=== PATIENT | female | born 1960 | race African-American/Black ===

== ENCOUNTER 2018-11-20 11:27 | Emergency (ER) | payer SELFPAY ==
[~2018-11-20] VITALS: Ht 165.1 cm; Wt 68.0 kg
[2018-11-20] MEDS ORDERED: UNOBMED (11:41)
[2018-11-20 12:22] LABS: APPEARANCE,URINE CLEAR; BILIRUBIN, URINE NEGATIVE (NEGATIVE); COLOR,URINE PALE YELLOW; GLUCOSE, URINE (UA) NEGATIVE (NEGATIVE); KETONES,URINE NEGATIVE (NEGATIVE); LEUKOCYTE ESTERASE ,URINE 3+ (NEGATIVE); NITRITE,URINE NEGATIVE (NEGATIVE); PH,URINE 6 (4.5-8.0); PROTEIN,URINE NEGATIVE (NEGATIVE); UROBILINOGEN,URINE NORMAL MG/DL (0.0-1.0)
[2018-11-20 12:26] LABS: BASOPHILS % (AUTO) 1.1 % (0.0-2.0); EOSINOPHILS % (AUTO) 2.9 % (0.0-3.0); HEMOGLOBIN 12.6 G/DL (12.0-16.0); LYMPHOCYTES % (AUTO) 28.2 % (20.0-45.0); MEAN CORPUSCULAR VOLUME 82 FL (80-99); MONOCYTES % (AUTO) 7.6 % (1.0-10.0); NEUTROPHILS % (AUTO) 60.2 % (45.0-75.0); PLATELET COUNT 298 K/UL (150-450); RED CELL DISTRIBUTION WIDTH 17.6 % (11.6-14.8); WHITE BLOOD COUNT 10.8 K/UL (4.8-10.8)
[2018-11-20 12:30] VITALS: BP 146/74
[2018-11-20 12:32] LABS: INR 0.9 (0.9-1.1)
[2018-11-20 12:47] LABS: ANION GAP 9 mmol/L (5-15); BLOOD UREA NITROGEN 14 mg/dL (7-18); CALCIUM 9.4 MG/DL (8.5-10.1); CARBON DIOXIDE 26 MMOL/L (21-32); CHLORIDE 106 MMOL/L (98-107); CREATININE 0.7 MG/DL (0.55-1.30); POTASSIUM 3.9 MMOL/L (3.5-5.1); SODIUM 141 MMOL/L (136-145)
[2018-11-20 12:51] LABS: ALANINE AMINOTRANSFERASE 35 U/L (12-78); ALBUMIN 3.8 G/DL (3.4-5.0); ALBUMIN/GLOBULIN RATIO 0.9 (1.0-2.7); ALKALINE PHOSPHATASE 87 U/L (46-116); ASPARTATE AMINO TRANSFERASE 17 U/L (15-37); BILIRUBIN,TOTAL 0.5 MG/DL (0.2-1.0)
--- NOTE | 2018-11-20 13:34 | Diagnostic Imaging Report ---
Indication: Abdominal pain Technique: One view of the chest Comparison: none Findings: Calcification in the left lower pelvis most likely represents a calcified fibroid. There are calcified gallstones in the right upper quadrant The bowel gas pattern is unremarkable. No masses. No evidence of organomegaly. Impression: No acute process Evidence of cholelithiasis
[2018-11-20] MEDS ORDERED: Isovue-300 100ml vial INJ PRN (13:45)
[2018-11-20 14:30] VITALS: BP 146/80
--- NOTE | 2018-11-20 14:36 | Emergency Room Report ---
History of Present Illness General Chief Complaint: Gastrointestinal Illness Source: Patient Present Illness HPI 58-year-old female presents ED for evaluation. Complaining of blood in her stool this morning. Noted bright red blood. Also noted some cramping abdominal pain. Left-sided, 5 out of 10, dull, nonradiating. Denies nausea or vomiting. Denies fevers or chills. Denies chest pain or shortness of breath. Does not take blood thinners. No other aggravating relieving factors. Denies any other associated symptoms Allergies: Coded Allergies: No Known Allergies (Unverified , 11/20/18) Patient History Past Medical History: HTN Past Surgical History: none Pertinent Family History: none Social History: Denies: smoking, alcohol use, drug use Last Menstrual Period: 7 yrs ago Now: No Immunizations: UTD Reviewed Nursing Documentation: PMH: Agreed; PSxH: Agreed Nursing Documentation-PMH Past Medical History: No History, Except For Hx Hypertension: Yes Review of Systems All Other Systems: negative except mentioned in HPI Physical Exam Vital Signs Date Time Temp Pulse Resp B/P (MAP) Pulse Ox O2 Delivery O2 Flow Rate FiO2 11/20/18 11:39 98.2 68 18 153/88 99 Room Air Sp02 EP Interpretation: reviewed, normal General Appearance: no apparent distress, alert, GCS 15, non-toxic Head: normocephalic, atraumatic Eyes: bilateral eye normal inspection, bilateral eye PERRL ENT: hearing grossly normal, normal pharynx, no angioedema, normal voice Neck: full range of motion, supple/symm/no masses Respiratory: chest non-tender, lungs clear, normal breath sounds, speaking full sentences Cardiovascular #1: regular rate, rhythm, no edema Cardiovascular #2: 2+ carotid (R), 2+ carotid (L), 2+ radial (R), 2+ radial (L) , 2+ dorsalis pedis (R), 2+ dorsalis pedis (L) Gastrointestinal: normal bowel sounds, soft, non-distended, no guarding, no rebound, tenderness Rectal: normal rectal tone, 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 - 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 Genitourinary: normal inspection, no CVA tenderness Musculoskeletal: back normal, gait/station normal, normal range of motion, non- tender Neurologic: alert, oriented x3, responsive, motor strength/tone normal, sensory intact, speech normal Psychiatric: judgement/insight normal, memory normal, mood/affect normal, no suicidal/homicidal ideation Reflexes: 3+ bicep (R), 3+ bicep (L), 3+ tricep (R), 3+ tricep (L), 3+ knee (R) , 3+ knee (L) Skin: normal color, no rash, warm/dry, well hydrated Lymphatic: no adenopathy Medical Decision Making Diagnostic Impression: Primary Impression: Diverticulitis ER Course Hospital Course 58-year-old F presents to ED with lower abdominal pain, blood in stool Differential diagnoses include: appendicitis, diverticulitis, SBO, gastroenteritis Clinical course Patient placed on stretcher. panel monitor. After initial history and physical I ordered labs, IV fluids, UA, pain medication and CT scan Labs - no leukocytosis, Hb/Hct stable. electrolytes ok. KUB - some fecal impaction noted CT abdomen and pelvis - diverticulosis, possible early diverticulitis Discussed findings with patient. Abdomen soft. No leukocytosis. No fever. Patient appears nontoxic, afebrile. Believe patient be safely discharged to home with antibiotics with close outpatient follow-up. Given Cipro and Flagyl here. Patient states she does not have a PMD. We'll provide referrals I feel this is a highly complex case requiring extensive working including EKG/ Rhythm strip, Xray/CT/US, Blood/urine lab work, repeat exams while in ED, and administration of strong opiates/narcotics for pain control, admission to hospital or close patient follow up. Diagnosis - divertculitis stable and discharged to home with prescription for Cipro and Flagyl, and tylenol #3. Followup with PMD. Return to ED if symptoms recur or worsen Labs Test 11/20/18 12:00 11/20/18 12:15 Urine Color Pale yellow Urine Appearance Clear Urine pH 6 (4.5-8.0) Urine Specific [place] 1.010 (1.005-1.035) Urine Protein Negative (NEGATIVE) Urine Glucose (UA) Negative (NEGATIVE) Urine Ketones Negative (NEGATIVE) Urine Blood 2+ (NEGATIVE) Urine Nitrite Negative (NEGATIVE) Urine Bilirubin Negative (NEGATIVE) Urine Urobilinogen Normal MG/DL (0.0-1.0) Urine Leukocyte Esterase 3+ (NEGATIVE) Urine RBC 2-4 /HPF (0 - 2) Urine WBC 5-10 /HPF (0 - 2) Urine Squamous Epithelial Cells Few /LPF (NONE/OCC) Urine Bacteria Few /HPF (NONE) White Blood Count 10.8 K/UL (4.8-10.8) Red Blood Count 4.90 M/UL (4.20-5.40) Hemoglobin 12.6 G/DL (12.0-16.0) Hematocrit 40.0 % (37.0-47.0) Mean Corpuscular Volume 82 FL (80-99) Mean Corpuscular Hemoglobin 25.8 PG (27.0-31.0) Mean Corpuscular Hemoglobin Concent 31.6 G/DL (32.0-36.0) Red Cell Distribution Width 17.6 % (11.6-14.8) Platelet Count 298 K/UL (150-450) Mean Platelet Volume 5.6 FL (6.5-10.1) Neutrophils (%) (Auto) 60.2 % (45.0-75.0) Lymphocytes (%) (Auto) 28.2 % (20.0-45.0) Monocytes (%) (Auto) 7.6 % (1.0-10.0) Eosinophils (%) (Auto) 2.9 % (0.0-3.0) Basophils (%) (Auto) 1.1 % (0.0-2.0) Prothrombin Time 10.0 SEC (9.30-11.50) Prothromb Time International Ratio 0.9 (0.9-1.1) Activated Partial Thromboplast Time 32 SEC (23-33) Sodium Level 141 MMOL/L (136-145) Potassium Level 3.9 MMOL/L (3.5-5.1) Chloride Level 106 MMOL/L (98-107) Carbon Dioxide Level 26 MMOL/L (21-32) Anion Gap 9 mmol/L (5-15) Blood Urea Nitrogen 14 mg/dL (7-18) Creatinine 0.7 MG/DL (0.55-1.30) Estimat Glomerular Filtration Rate > 60 mL/min (>60) Glucose Level 86 MG/DL (74-106) Calcium Level 9.4 MG/DL (8.5-10.1) Total Bilirubin 0.5 MG/DL (0.2-1.0) Aspartate Amino Transf (AST/SGOT) 17 U/L (15-37) Alanine Aminotransferase (ALT/SGPT) 35 U/L (12-78) Alkaline Phosphatase 87 U/L (46-116) Total Protein 8.1 G/DL (6.4-8.2) Albumin 3.8 G/DL (3.4-5.0) Globulin 4.3 g/dL Albumin/Globulin Ratio 0.9 (1.0-2.7) Lipase 176 U/L (73-393) Other X-Ray Diagnostic Results Other X-Ray Diagnostic Results : X-Ray ordered: KUB Indication: Pain EP Interpretation: Yes Interpretation: nonspecific bowel gas, no sbo, other - fecal impaction Impression: Other - constipation Electronically Signed by: Electronically signed by Daniel Davison MD CT/MRI/US Diagnostic Results CT/MRI/US Diagnostic Results : Imaging Test Ordered: CT A/P Impression Colonic diverticulosis. Very questionable infiltration of the fat anterior to the proximal sigmoid colon at the junction with the distal descending. Of doubtful significance but very early acute diverticulitis changes possible. Correlate with clinical findings Last Vital Signs Date Time Temp Pulse Resp B/P (MAP) Pulse Ox O2 Delivery O2 Flow Rate FiO2 11/20/18 11:46 68 18 Room Air 11/20/18 11:39 98.2 153/88 99 Status: improved Disposition: HOME, SELF-CARE Condition: Stable Scripts Acetaminophen With Codeine (T#3) (TYLENOL #3 TAB*) Y Tab 1 TAB ORAL Q8H PRN for For Pain, #12 TAB Prov: Daniel Davison MD 11/20/18 Metronidazole* (FLAGYL*) 500 Mg Tablet 500 MG ORAL THREE TIMES A DAY, #21 TAB Prov: Daniel Davison MD 11/20/18 Ciprofloxacin Hcl* (CIPROFLOXACIN HCL*) 500 Mg Tablet 500 MG ORAL Q12H, #14 TAB 0 Refills Prov: Daniel Davison MD 11/20/18 Referrals: NOT CHOSEN IPA/,REFERRING (PCP) Daniel Davison MD Nov 20, 2018 14:36
--- NOTE | 2018-11-20 14:55 | Diagnostic Imaging Report ---
Clinical Indication: Abdominal pain Technique: No oral contrast utilized, per emergency room physician request IV administration nonionic contrast. Venous phase spiral acquisition obtained through the abdomen and pelvis. Multiplanar reconstructions were generated. Total dose length product 608.29 mGycm. CTDIvol(s) 12.2 mGy. Dose reduction achieved using automated exposure control Comparison: none Findings: Lack of enteric contrast limits assessment of the GI tract. There is colonic diverticulosis. There is equivocal minimal infiltration of the fat anterior to the junction of the descending and proximal sigmoid colon. No fluid collection or extraluminal gas. Normal appendix. Normal caliber small bowel. No free or loculated intraperitoneal gas or fluid is evident. The distal esophagus, stomach, duodenum are unremarkable. The liver is diffusely hypoattenuating. It is normal in contour. However, prominent coronary veins are seen in the lesser sac. There are gallstones. The gallbladder is nondistended. No biliary ductal dilatation. The pancreas, spleen, adrenals, kidneys are unremarkable. There is a small fat-containing umbilical hernia. The uterus is enlarged, contains multiple exophytic fibroids as well as a calcified fibroid. No adnexal mass demonstrated. The bladder is unremarkable. The included lung bases are clear. The bones demonstrate mild degenerative spondylosis changes, are otherwise unremarkable. Impression: Limited assessment of the GI tract, due to lack of enteric contrast administration. Colonic diverticulosis. Very questionable infiltration of the fat anterior to the proximal sigmoid colon at the junction with the distal descending. Of doubtful significance but very early acute diverticulitis changes possible. Correlate with clinical findings Fatty liver Small coronary vein varices in the lesser sac, raises concern for portal hypertension. However, no hepatic contour abnormalities to suggest cirrhosis and no other stigmata of portal hypertension are demonstrated, so significance of this finding is uncertain. Cholelithiasis. Negative for dilated bile ducts Enlarged uterus with multiple fibroids, some calcified and therefore degenerated Incidental finding of mild degenerative spondylosis, small fat-containing abdominal hernia The CT scanner at [facility] is accredited by the [employer] and the scans are performed using protocols designed to limit radiation exposure to as low as reasonably achievable to attain images of sufficient resolution adequate for diagnostic evaluation.
[2018-11-20] MEDS ORDERED: Ciprofloxacin 500mg tab ORAL ONE (15:15)
[2018-11-20] MEDS ORDERED: metroNIDAZOLE 500mg tab ORAL ONE (15:15)
[2018-11-20] MEDS ORDERED: CIPROFLOXACIN500 M2 ORAL (15:23)
[2018-11-20] MEDS ORDERED: ACETAMINOPHEN-1 EAC1 ORAL (15:23)
[2018-11-20] MEDS ORDERED: METRONIDAZOLE500 MG ORAL (15:23)
[2018-11-20 15:40] VITALS: BP 133/76
== END 2018-11-20 15:40 | disposition home or self-care (01) ==
LOC: EMR 12:10
DX: K57.92 Diverticulitis of intestine, part unspecified, without perforation or abscess without bleeding (principal); I10 Essential (primary) hypertension; K76.0 Fatty (change of) liver, not elsewhere classified; D25.9 Leiomyoma of uterus, unspecified; M47.9 Spondylosis, unspecified; K80.20 Calculus of gallbladder without cholecystitis without obstruction
CPT/HCPCS: 36415; 74018; 74177; 80053; 81003; 83690; 85025; 85610; 85730; 86850; 86900; 86901; 99284; Q9967